=== PATIENT | male | born 1945 | race Caucasian/White ===

== ENCOUNTER 2018-03-08 05:14 | Observation (INO) | payer MEDICARE ==
[2018-03-01 15:10] LABS: BASOPHILS # (AUTO) 0.1 (0.0-0.1); BASOPHILS % 0.7 % (0.0-1.0); EOSINOPHILS # (AUTO) 0.2 (0.0-0.4); EOSINOPHILS % 2.2 % (0.0-6.0); HEMATOCRIT 39.5 % (38.2-49.6); HEMOGLOBIN 13.8 g/dL (14.0-18.0); LYMPHOCYTES % 25.3 % (18.0-39.1); MEAN CORPUSCULAR HGB CONC 34.9 g/dL (31-35); MEAN CORPUSCULAR VOLUME 91.6 fL (81-99); MONOCYTES # (AUTO) 0.7 (0.2-0.8); MONOCYTES % 8.6 % (4.4-11.3); NEUTROPHILS # (AUTO) 5.1 (2.1-6.9); NEUTROPHILS % 62.8 % (38.7-80.0); PLATELET COUNT 253 x10e3/uL (140-360); RED BLOOD COUNT 4.31 x10e6/uL (4.3-5.7); RED CELL DISTRIBUTION WIDTH 13.4 % (11.7-14.4)
--- NOTE | 2018-03-01 15:48 | Diagnostic Imaging Report ---
PROCEDURE: Frontal and lateral views of the chest. COMPARISON: None. INDICATIONS: PRE OPERATION CHEST X-RAY FOR PAROTID GLAND SURGERY FINDINGS: Lines/tubes: None. Lungs: The lungs are well inflated and clear. There is no evidence of pneumonia or pulmonary edema. A 1.0 cm nodular opacity in the right midlung has been stable since at least 2011 and is likely a benign granuloma. Pleura: There is no pleural effusion or pneumothorax. Heart and mediastinum: The heart and the mediastinum are normal. Bones: No acute bony abnormality. IMPRESSION: 1. No acute cardiopulmonary disease. Dictated by: Ronal Flynn M.D. on 03/01/2018 at 15:49 Electronically approved by: Ronal Flynn M.D. on 03/01/2018 at 15:49
[~2018-03-08] VITALS: Ht 180.3 cm; Wt 81.2 kg
[~2018-03-08 05:14] MED LIST: ATORVASTATIN CA10 MG PO; AZO STANDARD95 MG; CRESTOR10 MG PO; DILANTIN; DILANTIN100 MG PO; FLONASE16 GM; GABAPENTIN300 MG PO; LEVAQUIN500 MG PO; LORAZEPAM1 MG PO; NORCO 10MG-325MG1 EA PO; NORVASC5 MG PO; PHENOBARBITAL PO; PHENYTOIN SODI100 MG PO; SERTRALINE HCL100 MG PO; TYLENOL WITH C1 EACH PO; VESICARE5 MG PO; [UNRECOGNIZED DRUG - OTHER] PO
--- OUTSIDE RECORDS SUMMARY | 2018-03-08 05:16 | XMS REPORT ---
Author Author [facility] Address Unknown Phone Unavailable Care Team Providers Care Membership Advisor Name Role Phone WINIFRED DAVILA Unavailable Unavailable Problems This patient has no known problems. Allergies, Adverse Reactions, Alerts This patient has no known allergies or adverse reactions. Medications This patient has no known medications. Results Test Description Test Time Test Comments Text Results Atomic Results Result Comments CHEST 2 VIEWS [place] [address] Patient Name: ALFREDO TALBOT MR #: [id number] : 1945 Age/Sex: 72/M Req # : [id number] Adm Physician: Ordered by: GIOVANNI DAWN, WINIFRED DAWN Report #: [id number] Location: OR Room/Bed: Procedure: [id number] DX/CHEST 2 VIEWS Exam Date: 03/01/18 Exam Time: 1516 REPORT STATUS: Signed PROCEDURE: Frontal and lateral views of the chest. COMPARISON: None. INDICATIONS: PRE OPERATION CHEST X- RAY FOR PAROTID GLAND SURGERY FINDINGS: Lines/tubes: None. Lungs: The lungs are well inflated and clear. There is no evidence of pneumonia or pulmonary edema. A 1.0 cm nodular opacity in the right midlung has been stable since at least 2011 and is likely a benign granuloma. Pleura: There is no pleural effusion or pneumothorax. Heart and mediastinum: The heart and the mediastinum are normal. Bones: No acute bony abnormality. IMPRESSION: 1. No acute cardiopulmonary disease. Dictated by: Eve Flynn M.D. on 03/01/2018 at 15:49 Electronically approved by: Eve Flynn M.D. on 03/01/2018 at 15:49 Dictated By: EVE FLYNN MD 48 Transcribed By: FLO on 1548 COPY TO: WINIFRED DAVILA CHEST 2 VIEWS [place] [address] Patient Name: ALFREDO TALBOT MR #: [id number] : 1945 Age/Sex: 71/M Req # : [id number] [facility] Physician: Ordered by: LANE SHARP MD Report #: [id number] Location: OR Room/Bed: Procedure: [id number] DX/CHEST 2 VIEWS Exam Date: 07/08/17 Exam Time: 1556 REPORT STATUS: Signed PROCEDURE: Frontal and lateral views of the chest. COMPARISON: [facility], DX, CHEST 2 VIEWS, 2011, 11:48. [facility], DX, CHEST 2 VIEWS, 11/21/2015, 10:31. INDICATIONS: PRE-OP FOR NECK SURGERY FINDINGS: Lines/tubes: None. Lungs: The lungs are well inflated. Stable 7 mm nodular density in the right mid to lower lung on the frontal view since 2011, likely a calcified granuloma.. There is no evidence of pneumonia or pulmonary edema. Pleura: There is no pleural effusion or pneumothorax. Heart and mediastinum: The heart and the mediastinum are normal. Bones: No acute bony abnormality. IMPRESSION: 1. No acute cardiopulmonary abnormalities. Margarette Herman M.D. Dictated by: Margarette Herman M.D. on 07/08/2017 at 17:36 Electronically approved by: Margarette Herman M.D. on 07/08/2017 at 17:36 Dictated By: MARGARETTE HERMAN MD 173 Transcribed By: FLO on 07/08/171735 COPY TO: LANE SHARP MD
[2018-03-08] MEDS ORDERED: SODIUM CHLORIDE 0.9% INJ 10 ML VIAL ONE (06:36)
[2018-03-08] MEDS ORDERED: EPINEPHRINE HCL INJ 1 MG/ML AMP ONE (06:36)
[2018-03-08] MEDS ORDERED: FENTANYL CITRATE/PF 100MCG/2 ML INJ ONE (09:54)
[2018-03-08] MEDS ORDERED: MIDAZOLAM HCL 2 MG/2 ML VIAL ONE (09:54)
[2018-03-08 12:13] VITALS: BP 168/88
[2018-03-08 12:26] VITALS: BP 168/88
[2018-03-08] MEDS ORDERED: LACTATED RINGER'S 1,000 ML IV SCH (12:30)
[2018-03-08] MEDS ORDERED: ONDANSETRON HCL INJ 2 MG/ML VIAL IV PRN (12:30)
--- NOTE | 2018-03-08 12:45 | Operative Report ---
DATE OF PROCEDURE: March 08, 2018 PREOPERATIVE DIAGNOSIS: Right parotid gland mass. 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 PROCEDURE: Right total parotidectomy with preservation of facial nerve using nerve integrity monitoring. SIGNIFICANT FINDINGS: Right parotid gland mass suspicious for malignancy on frozen section analysis. POULTRYMAN: Ana Rosa Ferguson MD ANESTHESIA: General endotracheal tube anesthesia. SPECIMEN REMOVED: Right total parotid gland. ESTIMATED BLOOD LOSS: 40 mL. COMPLICATIONS: None. INDICATIONS: The patient is a 72-year-old white male with a 2-1/2-year history of an enlarging, nontender mass in the right parotid gland. The patient is status post multiple skin cancer excisions in the past, most recently in the right rastafarian. Physical exam revealed a 4-cm, nontender, mobile mass in the right parotid gland. 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 He was scheduled for right superficial (possible total) parotidectomy with preservation of facial nerve using NIM for the treatment of right parotid gland mass. The risks and complications of the procedure were thoroughly discussed with the patient and his . They include infection; bleeding; scarring; failure to improve; need for additional operations; possibility of malignancy and need for additional treatment including radiation, chemotherapy and surgery; facial paralysis; poor external cosmetic appearance of the wound; sweating of the face when eating; development of saliva underneath the skin flaps causing breakdown of the wound and chronic drainage; damage to the surrounding nerves, blood vessels, and muscles and need for blood transfusions. He fully understands and gives consent. DESCRIPTION OF PROCEDURE: The patient was taken to the operating room and placed supine on the operating table, where general anesthesia was achieved through orotracheal intubation. Intraoperative antibiotic in the form of Ancef was administered. Injection with 10 mL of 1:100,000 epinephrine without lidocaine was injected along the planned right parotidectomy incision site as well as the area of the anterior skin flap. The face was prepped and draped in the usual sterile fashion. Following this, under a clear drape to be able to monitor facial nerve function, the electrodes for the NIM monitor were inserted prior to prepping and draping and were connected to the NIM monitor, which was seen to be functioning at the time of the case. The patient was given intravenous Ancef prior to the incision intraoperatively. The parotidectomy incision was then made on the right side in a vertical fashion in the preauricular area extending inferiorly past the earlobe, extending posteriorly and then bending anteriorly to involve a natural skin crease 2 fingerbreadths inferior to the inferior margin of the mandible. This was done with a #15 blade until the lateral fascia of the right parotid gland was encountered. Anterior and posterior skin flaps were then elevated and were held in place with 2-0 silk suture. Following this, dissection was then performed, the parotid gland from the anterior surface of the sternocleidomastoid muscle. Dissection was then carried out in a wide trough until the anatomic area inferomedial to the tragal cartilage was dissected. This was done atraumatically until the main trunk of the facial nerve was identified. This was then dissected anteriorly until all of the facial nerve branches were identified and were seen to be intact. The mass was in the inferior portion of the right superficial parotid gland. This was sent for frozen section analysis, which was suspicious for malignancy. Total parotidectomy was then performed by removing the tissue deep to the facial nerve branches. These were sent for permanent section analysis. No bleeding was seen with Valsalva maneuver following the procedure. All of the facial nerve branches were seen to be intact and functional with stimulation with the probe attached to the NIM monitor. Following this, a MORRIS drain was then inserted through a separate stab incision, which was connected to suction. The wound was then repaired with interrupted 4-0 Monocryl in a subcuticular fashion followed by Dermabond. The patient was awakened in the operating room, extubated and taken to the recovery room in good condition. Job#: [id number]
[2018-03-08] MEDS: HYDROCODONE/APAP 7.5MG-325MG 1 EA TAB PO PRN ×2 (12:50→16:43)
[2018-03-08] MEDS: CEFAZOLIN SOD 1 GM VIAL IV SCH ×2 (13:02→20:37)
[2018-03-08] MEDS ORDERED: CEFAZOLIN SOD 1 GM in WATER STERILE 10ML VIAL 10 ML IV SCH (14:00)
[2018-03-08] MEDS ORDERED: ONDANSETRON HCL 4 MG ORAL DISINTEGRATING TAB SL PRN (14:45)
[2018-03-08 16:58] VITALS: BP 153/86
[2018-03-08] MEDS ORDERED: GLYCOPYRROLATE INJ 1MG/ 5 ML SYR ONE (17:38)
[2018-03-08] MEDS ORDERED: EPHEDRINE SULFATE INJ 50 MG/10 ML SYR ONE (17:38)
[2018-03-08] MEDS ORDERED: PROPOFOL IV EMULSION 10 MG/ML 20 ML VIAL ONE (17:38)
[2018-03-08] MEDS ORDERED: NEOSTIGMINE 5 MG/5ML SYR ONE (17:38)
[2018-03-08] MEDS ORDERED: DESFLURANE 240 ML BTL INH ONE (17:38)
[2018-03-08] MEDS ORDERED: ACETAMINOPHEN 1000 MG/100 ML IV ONE (17:38)
[2018-03-08] MEDS ORDERED: ROCURONIUM BROMIDE 10 MG/ML 5ML VIAL ONE (17:38)
[2018-03-08] MEDS ORDERED: ONDANSETRON HCL INJ 2 MG/ML VIAL ONE (17:38)
[2018-03-08] MEDS ORDERED: DEXAMETHASONE SOD PHOS INJ 4 MG/ML VIAL ONE (17:38)
[2018-03-08] MEDS ORDERED: LIDOCAINE HCL 2% LOCAL INJ 5 ML SDV VIAL INJ ONE (17:38)
[2018-03-08 20:00] VITALS: BP 137/72
[2018-03-08] MEDS ORDERED: LORAZEPAM 1 MG TAB PO SCH (21:00)
[2018-03-08] MEDS ORDERED: SOLIFENACIN SUCCINATE 5 MG TAB PO SCH (21:00)
[2018-03-08] MEDS ORDERED: GABAPENTIN 300 MG CAP PO SCH (21:00)
[2018-03-08] MEDS ORDERED: ATORVASTATIN 10 MG TAB PO SCH (21:00)
[2018-03-09] VITALS: BP 134/76
[2018-03-09 04:00] VITALS: BP 151/77
[2018-03-09] MEDS: HYDROCODONE/APAP 7.5MG-325MG 1 EA TAB PO PRN ×3 (04:34→12:33)
[2018-03-09] MEDS: CEFAZOLIN SOD 1 GM VIAL IV SCH (05:20)
[2018-03-09 07:25] VITALS: BP 166/83
[2018-03-09] MEDS ORDERED: SERTRALINE HCL 100 MG TAB PO SCH (09:00)
[2018-03-09] MEDS ORDERED: PHENYTOIN SODIUM EXT REL 100 MG CAP PO SCH (09:00)
[2018-03-09 11:12] VITALS: BP 153/82
== END 2018-03-09 13:41 | disposition home or self-care (01) ==
LOC: OR 05:14 → IMCU 11:39
PROVIDERS: ADMIT Otolaryngology; ATTEND Otolaryngology
DX: C07 Malignant neoplasm of parotid gland (principal)
CPT/HCPCS: 36415; 42420; 71046; 85025; 88307; 88313; 88331; 88342; 93005; G0378 ×2; J0171; J0690 ×2; J1100; J2001; J2250; J2405; 88305